=== PATIENT | female | born 1955 | race Caucasian/White ===

== ENCOUNTER → 2017-05-23 | Outpatient (CLI) | payer OTHER | LOC: LAB 14:34 | DX: Z00.00 Encounter for general adult medical examination without abnormal findings (principal) ==

== ENCOUNTER → 2017-06-07 | Outpatient (CLI) | payer OTHER | LOC: CARDREHAB 11:45 | DX: R06.83 Snoring (principal); E66.9 Obesity, unspecified; Z68.33 Body mass index [BMI] 33.0-33.9, adult; R09.02 Hypoxemia; G44.009 Cluster headache syndrome, unspecified, not intractable; R53.83 Other fatigue | CPT/HCPCS: G0399 ==

== ENCOUNTER → 2017-07-03 | Outpatient (CLI) | payer OTHER | LOC: RAD 10:31 | DX: R06.02 Shortness of breath (principal); R09.02 Hypoxemia ==

== ENCOUNTER 2017-10-03 16:16 | Emergency (ER) | payer OTHER ==
[~2017-10-03] VITALS: Ht 160 cm; Wt 88.6 kg
[2017-10-03 17:02] LABS: HEMATOCRIT 45.1 % (37.0-47.0); HEMOGLOBIN 14.8 g/dL (12.5-16.0); MEAN CELL VOLUME 92 fl (78-100); MEAN CORPUSCULAR HEMOGLOBIN 30 pg (27-31); MEAN CORPUSCULAR HGB CONC 33 g/dL (33-37); MEAN PLATELET VOLUME 10.2 fl (7.4-10.4); PLATELET COUNT 278 K/mm3 (130-400); RED CELL DISTRIBUTION WIDTH 14.6 % (11.5-14.5)
[2017-10-03 17:11] LABS: CALCIUM 9.4 mg/dL (8.4-10.2); POTASSIUM 4.3 mmol/L (3.6-5.0); TOTAL BILIRUBIN 0.3 mg/dL (0.2-1.3); TOTAL PROTEIN 7.3 g/dL (6.3-8.2)
[2017-10-03] MEDS ORDERED: MASON NATURAL1000 IU PO (17:12)
[2017-10-03] MEDS ORDERED: ADVAIR DISKUS1 DS2 IH (17:12)
[2017-10-03] MEDS ORDERED: FLONASE ALLERG9.9 ML NS (17:12)
[2017-10-03] MEDS ORDERED: CLARITIN LIQUI-10 MG PO (17:13)
[2017-10-03] MEDS ORDERED: NEXIUM 40MG40 MG PO (17:13)
[2017-10-03] MEDS ORDERED: MUCINEX 60600 MG/TA1 PO (17:13)
[2017-10-03] MEDS ORDERED: MELATONIN10 MG PO (17:14)
[2017-10-03 17:32] LABS: LYMPHOCYTE 13 % (20-51); MONOCYTE 11 % (3-10); NEUTROPHILS 76 % (42-75)
[2017-10-03 17:53] LABS: D-DIMER 0.64 mg/L FEU (0.15-0.50)
[2017-10-03] MEDS ORDERED: ZITHROMAX 250M250 MG PO (21:20)
[2017-10-03] MEDS ORDERED: ZOFRAN ODT8 M1 PO (21:22)
[2017-10-03] MEDS ORDERED: PROVENTIL0.09 MG/A1 IH (21:22)
[2017-10-03 21:36] VITALS: BP 138/84
== END 2017-10-03 21:36 | disposition home or self-care (01) ==
LOC: ED 16:16
PROVIDERS: Nurse Practitioner Family
DX: J20.9 Acute bronchitis, unspecified (principal); J45.902 Unspecified asthma with status asthmaticus; R11.0 Nausea; K21.9 Gastro-esophageal reflux disease without esophagitis; E78.5 Hyperlipidemia, unspecified; Z87.891 Personal history of nicotine dependence; Z88.2 Allergy status to sulfonamides; Z88.7 Allergy status to serum and vaccine; Z91.040 Latex allergy status
CPT/HCPCS: J7030; Q9967

== ENCOUNTER → 2018-04-17 | Outpatient (CLI) | payer MEDICARE, OTHER ==
[~2018-04-17] MED LIST: ADVAIR DISKUS1 DS2 IH; CLARITIN LIQUI-10 MG PO; FLONASE ALLERG9.9 ML NS; MASON NATURAL1000 IU PO; MELATONIN10 MG PO; MUCINEX 60600 MG/TA1 PO; NEXIUM 40MG40 MG PO; PROVENTIL0.09 MG/A1 IH; ZITHROMAX 250M250 MG PO; ZOFRAN ODT8 M1 PO
[2018-04-17 11:20] LABS: BASO # 0.1 (0.02-0.10); EOS # 0.2 (0.04-0.40); EOS % 2.7 % (1.0-5.0); HEMATOCRIT 45.1 % (37.0-47.0); HEMOGLOBIN 14.9 g/dL (12.5-16.0); MEAN CELL VOLUME 93 fl (78-100); MEAN CORPUSCULAR HEMOGLOBIN 31 pg (27-31); MEAN CORPUSCULAR HGB CONC 33 g/dL (33-37); MEAN PLATELET VOLUME 9.9 fl (7.4-10.4); PLATELET COUNT 322 K/mm3 (130-400); RED BLOOD COUNT 4.84 M/mm3 (4.10-5.30); RED CELL DISTRIBUTION WIDTH 14.6 % (11.5-14.5); WHITE BLOOD COUNT 8.3 K/mm3 (4.8-10.8)
[2018-04-17 11:33] LABS: ALBUMIN 4.1 g/dL (3.5-5.0); CALCIUM 9.4 mg/dL (8.4-10.2); POTASSIUM 4.2 mmol/L (3.6-5.0); TOTAL BILIRUBIN 0.6 mg/dL (0.2-1.3); TOTAL PROTEIN 7.6 g/dL (6.3-8.2)
[2018-04-17 12:28] LABS: ERYTHROCYTE SEDIMENTATION RATE 12 mm/hr (0-30)
== END ==
LOC: LAB 10:52
PROVIDERS: Internal Medicine
DX: Z12.11 Encounter for screening for malignant neoplasm of colon (principal); Z00.00 Encounter for general adult medical examination without abnormal findings; E78.5 Hyperlipidemia, unspecified; E03.4 Atrophy of thyroid (acquired); E55.9 Vitamin D deficiency, unspecified

== ENCOUNTER → 2018-04-24 | Outpatient (CLI) | payer MEDICARE, OTHER | LOC: RAD 13:51 | DX: I73.9 Peripheral vascular disease, unspecified (principal) | CPT/HCPCS: Q9967 ==

== ENCOUNTER 2018-10-21 13:48 | Emergency (ER) | payer MEDICARE, OTHER ==
[~2018-10-21] VITALS: Ht 160 cm; Wt 90.9 kg
[2018-10-21] MEDS ORDERED: AMOXICILLIN AND1 TA2 PO (13:54)
[2018-10-21 14:37] LABS: HEMATOCRIT 48.2 % (37.0-47.0); MEAN CELL VOLUME 90 fl (78-100); MEAN CORPUSCULAR HEMOGLOBIN 30 pg (27-31); MEAN CORPUSCULAR HGB CONC 33 g/dL (33-37); MEAN PLATELET VOLUME 10.2 fl (7.4-10.4); PLATELET COUNT 288 K/mm3 (130-400); RED BLOOD COUNT 5.33 M/mm3 (4.10-5.30); RED CELL DISTRIBUTION WIDTH 14.4 % (11.5-14.5); WHITE BLOOD COUNT 13.5 K/mm3 (4.8-10.8)
[2018-10-21 14:51] LABS: ALBUMIN 4.1 g/dL (3.5-5.0); POTASSIUM 4.4 mmol/L (3.6-5.0); TOTAL BILIRUBIN 0.6 mg/dL (0.2-1.3); TOTAL PROTEIN 7.8 g/dL (6.3-8.2)
[2018-10-21 14:51] LABS: PH-URINE 6.5 (5.0 - 8.0); URINE APPEARANCE HAZY; URINE BILIRUBIN NEGATIVE (NEGATIVE); URINE BLOOD NEGATIVE (NEGATIVE); URINE COLOR YELLOW; URINE GLUCOSE NEGATIVE (NEGATIVE); URINE KETONE 1+ (NEGATIVE); URINE LEUKOCYTE ESTERASE NEGATIVE (NEGATIVE); URINE MUCUS PRESENT (NOT PRESENT); URINE NITRATE NEGATIVE (NEGATIVE); URINE PROTEIN(semi-quant) TRACE mg/dL (NEGATIVE); URINE UROBILINOGEN NORMAL (NORMAL)
[2018-10-21 14:52] LABS: BAND 1 % (0-10); LYMPHOCYTE 2 % (20-51); MONOCYTE 2 % (3-10); NEUTROPHILS 95 % (42-75)
[2018-10-21 14:57] LABS: LIPASE 135 U/L (23-300)
[2018-10-21] MEDS ORDERED: METRONIDAZOLE500 M1 PO (17:05)
[2018-10-21] MEDS ORDERED: NORCO 325 MG-51 TA1 PO (17:05)
[2018-10-21] MEDS ORDERED: ZOFRAN ODT4 MG PO (17:05)
[2018-10-21 17:15] VITALS: BP 120/83
== END 2018-10-21 17:15 | disposition home or self-care (01) ==
LOC: ED 13:48
PROVIDERS: Family Medicine
DX: R51 Headache (principal); M79.10 Myalgia, unspecified site; R10.9 Unspecified abdominal pain; K21.9 Gastro-esophageal reflux disease without esophagitis; J32.9 Chronic sinusitis, unspecified; Z79.51 Long term (current) use of inhaled steroids; Z87.891 Personal history of nicotine dependence; Z90.710 Acquired absence of both cervix and uterus
CPT/HCPCS: J1885; Q9967

== ENCOUNTER → 2018-10-30 | Outpatient (CLI) | payer MEDICARE, OTHER ==
[2018-10-21 17:15] VITALS: BP 120/83
[~2018-10-30] MED LIST changes: +AMOXICILLIN AND1 TA2 PO; +METRONIDAZOLE500 M1 PO; +NORCO 325 MG-51 TA1 PO; +ZOFRAN ODT4 MG PO
== END ==
LOC: LAB 11:08
DX: R10.9 Unspecified abdominal pain (principal); M79.10 Myalgia, unspecified site; R53.81 Other malaise

== ENCOUNTER → 2019-01-15 | Outpatient (CLI) | payer MEDICARE, OTHER ==
[2019-01-15 16:59] LABS: URINE WBC 0 /hpf (0-3)
[2019-01-15 22:15] LABS: URINE APPEARANCE CLEAR; URINE COLOR YELLOW; URINE GLUCOSE NEGATIVE (NEGATIVE); URINE KETONE 1+ (NEGATIVE); URINE PROTEIN(semi-quant) NEGATIVE (NEGATIVE)
[2019-01-15 22:16] LABS: URINE BILIRUBIN NEGATIVE (NEGATIVE); URINE BLOOD NEGATIVE (NEGATIVE); URINE LEUKOCYTE ESTERASE NEGATIVE (NEGATIVE); URINE NITRATE NEGATIVE (NEGATIVE); URINE UROBILINOGEN NORMAL (NORMAL)
== END ==
LOC: LAB 16:53
PROVIDERS: Internal Medicine
DX: N39.0 Urinary tract infection, site not specified (principal); R30.0 Dysuria

== ENCOUNTER → 2019-10-11 | Outpatient (CLI) | payer MEDICARE, OTHER | LOC: LAB 09:43 | DX: R10.9 Unspecified abdominal pain (principal) ==

== ENCOUNTER → 2019-10-11 | Outpatient (CLI) | payer MEDICARE, OTHER | LOC: MAMMO 08:30 | DX: Z12.31 Encounter for screening mammogram for malignant neoplasm of breast (principal) ==

== ENCOUNTER → 2020-06-12 | Outpatient (CLI) | payer MEDICARE, OTHER | LOC: LAB 17:46 | DX: M54.9 Dorsalgia, unspecified (principal); R30.0 Dysuria ==

== ENCOUNTER → 2021-06-01 | Outpatient (CLI) | payer MEDICARE, OTHER | LOC: RAD 09:15 | DX: M50.30 Other cervical disc degeneration, unspecified cervical region (principal) ==

== ENCOUNTER → 2021-12-06 | Outpatient (CLI) | payer MEDICARE, OTHER | LOC: RAD 12:30 | DX: R07.81 Pleurodynia (principal) ==

== ENCOUNTER → 2022-08-05 | Outpatient (CLI) | payer MEDICARE, OTHER | LOC: RAD 07:58 | DX: R10.9 Unspecified abdominal pain (principal) ==

== ENCOUNTER → 2022-11-10 | Outpatient (CLI) | payer MEDICARE, OTHER ==
[~2022-11-10] MED LIST changes: +ATORVASTATIN CA40 MG PO; +CYCLOBENZAPRINE10 M1 PO; +INDERAL 10MG10 MG PO; +PANTOPRAZOLE SO40 MG PO; +TRAMADOL 50 MG TAB PO
== END ==
LOC: RAD 13:30
DX: M25.551 Pain in right hip (principal); R10.2 Pelvic and perineal pain